=== PATIENT | male | born 1995 | race Caucasian/White ===

== ENCOUNTER 2019-08-10 14:53 | Emergency (ER) | payer BC, OTHER ==
--- NOTE | 2019-08-10 15:37 | ED ---
Lower Extremity - HPI Summary HPI Summary: 24 year old M presenting to [facility] with a chief complaint of right small toe pain since earlier today after hitting it on his bed. The patient rates the pain 5/10 in severity. Symptoms aggravated by nothing. Symptoms alleviated by nothing. Medication list reviewed. Allergy list reviewed. Home Medications Medication Instructions Recorded Confirmed Type NK [No Home Medications Reported] 08/10/19 08/10/19 History - History of Current Complaint Chief Complaint: EDExtremityLower Stated Complaint: RIGHT PINKY TOE INJURY Time Seen by Provider: 08/10/19 15:34 Hx Obtained From: Patient Mechanism Of Injury: Other - Kicked his bed. Onset of Pain: Immediate Severity Currently: Moderate Pain Intensity: 5 Pain Scale Used: 0-10 Numeric Timing: Constant Location: Is Discrete @ - Right small toe Aggravating Factor(s): Nothing Alleviating Factor(s): Nothing - Allergies/Home Medications Allergies/Adverse Reactions: Allergies Allergy/AdvReac Type Severity Reaction Status Date / Time No Known Allergies Allergy Verified 08/10/19 14:57 Home Medications: Home Medications NK [No Home Medications Reported] 08/10/19 [History Confirmed 08/10/19] PMH/Surg Hx/FS Hx/Imm Hx Endocrine/Hematology History: Denies: Hx Diabetes Cardiovascular History: Denies: Hx Hypertension - Surgical History Surgical History: None - Immunization History Date of Tetanus Vaccine: utd Date of Influenza Vaccine: 02/2019 Infectious Disease History: No Infectious Disease History: Denies: Traveled Outside the [place] in Last 30 Days - Family History Known Family History: Negative: Hypertension, Diabetes - Social History Alcohol Use: Occasionally Substance Use Type: Reports: None Smoking Status (MU): Never Smoked Tobacco Review of Systems Positive: Other - Right small toe pain Positive: Bruising - Right small toe All Other Systems Reviewed And Are Negative: Yes Physical Exam - Summary Physical Exam Summary: Constitutional: Well-developed, Well-nourished, Alert. (-) Distressed Skin: Warm, Dry HENT: Normocephalic; Atraumatic Eyes: Conjunctiva normal Neck: Musculoskeletal ROM normal neck. (-) JVD, (-) Stridor, (-) Tracheal deviation Cardio: Rhythm regular, rate normal, Heart sounds normal; Intact distal pulses; The pedal pulses are 2+ and symmetric. Radial pulses are 2+ and symmetric. (-) Murmur Pulmonary/Chest wall: Effort normal. (-) Respiratory distress, (-) Wheezes, (-) Rales Abd: Soft, (-) tenderness, (-) Distension, (-) Guarding, (-) Rebound Musculoskeletal: (-) Edema; 5th toe right foot with distal ecchymosis and tenderness to palpation. Lymph: (-) Cervical adenopathy Neuro: Alert, Oriented x3 Psych: Mood and affect Normal Triage Information Reviewed: Yes Vital Signs On Initial Exam: Initial Vitals Temp Pulse Resp BP Pulse Ox 97.7 F 74 16 155/112 96 08/10/19 14:55 08/10/19 14:55 08/10/19 14:55 08/10/19 14:55 08/10/19 14:55 Vital Signs Reviewed: Yes Procedures - Sedation Patient Received Moderate/Deep Sedation with Procedure: No Diagnostics - Vital Signs Vital Signs Temp Pulse Resp BP Pulse Ox 08/10/19 14:55 97.7 F 74 16 155/112 96 - Laboratory Lab Statement: Any lab studies that have been ordered have been reviewed, and results considered in the medical decision making process. - Radiology Toe x-ray Radiology Interpretation Completed By: Radiologist Summary of Radiographic Findings: NONDISPLACED FRACTURE OF THE DISTAL FIFTH DIGIT. ED physician has reviewed this report. Lower Extremity Course/Dx - Course Course Of Treatment: 24 year old M presenting to [facility] with a chief complaint of right small toe pain since earlier today after hitting it on his bed. Physical exam findings: 5th toe right foot with distal ecchymosis and tenderness to palpation. Toe x-ray reveals, per radiologist, NONDISPLACED FRACTURE OF THE DISTAL FIFTH DIGIT. Patient will be discharged with follow up from his PCP. The patient is agreeable with this plan. - Diagnoses Provider Diagnoses: Toe fracture Discharge ED - Sign-Out/Discharge Documenting (check all that apply): Patient Departure - Discharge Plan Condition: Stable Disposition: HOME Patient Education Materials: Toe Fracture (ED) Referrals: [facility] [Outside] - If Needed Additional Instructions: Follow-up with your PCP as needed. Return to the emergency department for changing or worsening symptoms. - Billing Disposition and Condition Condition: STABLE Disposition: Home - Attestation Statements Document Initiated by Scribe: Yes Documenting Scribe: Diamante Cano Provider For Whom Scribe is Documenting (Include Credential): James Freedman DO Scribe Attestation: IDiamante, scribed for James Freedman DO on 08/10/19 at 1933. Scribe Documentation Reviewed: Yes Provider Attestation: The documentation as recorded by the scribeDiamante accurately reflects the service I personally performed and the decisions made by me, James Freedman DO Status of Scribe Document: Viewed
[2019-08-10 16:36] VITALS: BP 155/97
== END 2019-08-10 16:35 | disposition home or self-care (01) ==
LOC: ED 14:53
DX: S92.501A Displaced unspecified fracture of right lesser toe(s), initial encounter for closed fracture (principal); S90.121A Contusion of right lesser toe(s) without damage to nail, initial encounter; W22.09XA Striking against other stationary object, initial encounter; Y92.9 Unspecified place or not applicable
CPT/HCPCS: 99282